=== PATIENT | female | born 1960 | race Hispanic/Latino ===

== ENCOUNTER 2019-04-13 19:15 | Emergency (ER) | payer BC, OTHER ==
[~2019-04-13] VITALS: Ht 149.9 cm; Wt 54.4 kg
--- OUTSIDE RECORDS SUMMARY | 2019-04-13 19:20 | XMS REPORT ---
Author Author [facility] Address Unknown Phone Unavailable Care Team Providers Care Wellness Program Manager Name Role Phone Unavailable Unavailable Problems This patient has no known problems. Allergies, Adverse Reactions, Alerts This patient has no known allergies or adverse reactions. Medications This patient has no known medications. Encounters Start Date/Time End Date/Time Encounter Type Admission Type Attending [facility] Facility Care Department Encounter ID 2019-04-07 09:34:06 2019-04-07 09:34:06 Outpatient [facility] [id number] 2019-04-07 09:30:53 2019-04-07 09:30:53 Outpatient [facility] [id number] 2019-04-07 08:58:02 2019-04-07 08:58:02 Outpatient [facility] [id number] 2019-04-07 00:00:00 2019-04-07 00:00:00 Outpatient [facility] [id number] 2019-02-14 00:00:00 2019-02-14 00:00:00 Outpatient [facility] [id number] 2019-02-13 00:00:00 2019-02-13 00:00:00 Outpatient [facility] [id number] 2019-01-25 00:00:00 2019-01-25 00:00:00 Outpatient [facility] [id number] 2019-01-09 00:00:00 2019-01-09 00:00:00 Outpatient [facility] [id number] 2019-01-02 12:09:20 2019-01-02 12:09:20 Outpatient [facility] [id number] 2018-11-14 00:00:00 2018-11-14 00:00:00 Outpatient [facility] [id number] 2018-11-08 08:25:50 2018-11-08 08:25:50 Outpatient [facility] [id number] 2018-11-01 10:57:25 2018-11-01 10:57:25 Outpatient [facility] [id number] 2018-10-27 10:09:42 2018-10-27 10:09:42 Outpatient [facility] [id number] 2018-10-27 09:59:50 2018-10-27 09:59:50 Outpatient [facility] [id number] 2018-10-27 08:05:10 2018-10-27 08:05:10 Outpatient [facility] [id number] 2018-10-26 14:28:58 2018-10-26 14:28:58 Outpatient [facility] [id number] 2018-10-25 00:00:00 2018-10-25 00:00:00 Outpatient [facility] [id number] 2018-09-20 00:00:00 2018-09-20 00:00:00 Outpatient [facility] [id number] 2018-09-19 08:07:27 2018-09-19 08:07:27 Outpatient [facility] [id number] 2018-09-19 07:17:04 2018-09-19 07:17:04 Outpatient [facility] [id number] 2018-09-17 23:00:35 2018-09-17 23:00:35 Emergency [facility] [id number] 2018-09-17 17:56:00 2018-09-17 17:56:00 Emergency [facility] [id number] 2018-09-17 13:56:26 2018-09-17 13:56:26 Outpatient [facility] [id number] 2018-09-17 00:00:00 2018-09-17 00:00:00 Outpatient [facility] [id number] 2018-08-31 08:12:34 2018-08-31 08:12:34 Outpatient [facility] [id number] 2018-08-02 10:51:37 2018-08-02 10:51:37 Outpatient [facility] [id number] 2018-07-21 10:54:44 2018-07-21 10:54:44 Outpatient [facility] [id number] 2018-07-21 10:16:42 2018-07-21 10:16:42 Outpatient [facility] [id number] 2018-07-08 07:51:59 2018-07-08 07:51:59 Outpatient [facility] [id number] 2018-07-08 07:04:25 2018-07-08 07:04:25 Outpatient [facility] [id number] 2018-06-21 08:18:20 2018-06-21 08:18:20 Outpatient [facility] [id number] 2018-06-13 13:13:24 2018-06-13 13:13:24 Outpatient [facility] [id number] 2018-06-02 10:36:58 2018-06-02 10:36:58 Outpatient [facility] [id number] 2018-06-02 00:00:00 2018-06-02 00:00:00 Outpatient [facility] [id number] 2018-05-31 00:00:00 2018-05-31 00:00:00 Outpatient [facility] [id number] 2018-05-24 00:00:00 2018-05-24 00:00:00 Outpatient [facility] [id number] 2018-05-17 12:58:36 2018-05-17 12:58:36 Outpatient [facility] [id number] 2018-05-05 10:08:55 2018-05-05 10:08:55 Outpatient [facility] [id number] 2018-05-05 00:00:00 2018-05-05 00:00:00 Outpatient [facility] [id number] 2018-04-28 00:00:00 2018-04-28 00:00:00 Outpatient [facility] [id number] 2018-04-22 07:34:59 2018-04-22 07:34:59 Outpatient [facility] [id number] 2018-04-22 00:00:00 2018-04-22 00:00:00 Outpatient [facility] [id number] 2018-04-15 13:37:18 2018-04-15 13:37:18 Outpatient [facility] [id number] 2018-04-15 08:04:15 2018-04-15 08:04:15 Outpatient [facility] [id number] 2018-04-13 16:17:43 2018-04-13 16:17:43 Outpatient [facility] [id number] 2018-04-06 14:05:41 2018-04-06 14:05:41 Outpatient [facility] [id number] 2018-04-06 12:36:46 2018-04-06 12:36:46 Outpatient [facility] [id number] 2018-04-05 12:34:55 2018-04-05 12:34:55 Outpatient [facility] [id number] 2018-03-31 15:06:09 2018-03-31 15:06:09 Outpatient [facility] [id number] 2018 11:17:29 2018 11:17:29 Outpatient [facility] [id number] 2018-03-17 00:00:00 2018-03-17 00:00:00 Outpatient [facility] [id number] 2018-03-16 07:39:04 2018-03-16 07:39:04 Outpatient [facility] [id number] 2018-03-15 00:00:00 2018-03-15 00:00:00 Outpatient [facility] [id number] 2018-03-10 07:34:38 2018-03-10 07:34:38 Outpatient [facility] [id number] 2018-03-08 00:00:00 2018-03-08 00:00:00 Outpatient [facility] [id number] 2018-03-03 00:00:00 2018-03-03 00:00:00 Outpatient [facility] [id number] 2018-03-01 12:46:57 2018-03-01 12:46:57 Outpatient [facility] [id number] 2018-03-01 08:44:36 2018-03-01 08:44:36 Outpatient [facility] [id number] 2018-02-28 10:04:57 2018-02-28 10:04:57 Outpatient [facility] [id number] 2018-02-23 14:00:14 2018-02-23 14:00:14 Outpatient [facility] [id number] 2018-02-21 07:03:53 2018-02-21 07:03:53 Outpatient [facility] [id number] 2018-02-16 09:20:09 2018-02-16 09:20:09 Outpatient [facility] [id number] 2018-02-16 07:53:10 2018-02-16 07:53:10 Outpatient [facility] [id number] 2018-02-15 07:55:43 2018-02-15 07:55:43 Outpatient [facility] [id number] 2018-02-11 00:00:00 2018-02-11 00:00:00 Outpatient [facility] [id number] 2018-02-09 07:04:46 2018-02-09 07:04:46 Outpatient [facility] [id number] 2018-02-02 08:23:26 2018-02-02 08:23:26 Outpatient [facility] [id number] 2018-01-26 06:57:42 2018-01-26 06:57:42 Outpatient [facility] [id number] 2018-01-24 13:18:39 2018-01-24 13:18:39 Outpatient [facility] [id number] 2018-01-21 12:51:26 2018-01-21 12:51:26 Outpatient [facility] [id number] 2018-01-19 08:11:17 2018-01-19 08:11:17 Outpatient [facility] [id number] 2018-01-19 00:00:00 2018-01-19 00:00:00 Outpatient [facility] [id number] 2018-01-18 00:00:00 2018-01-18 00:00:00 Outpatient [facility] [id number] 2018-01-14 07:25:56 2018-01-14 07:25:56 Outpatient [facility] [id number] 2018-01-07 07:46:10 2018-01-07 07:46:10 Outpatient [facility] [id number] 2018-01-04 08:54:04 2018-01-04 08:54:04 Outpatient [facility] [id number] 2018-01-04 07:54:27 2018-01-04 07:54:27 Outpatient [facility] [id number] 2017-12-31 07:49:41 2017-12-31 07:49:41 Outpatient [facility] [id number] 2017-12-28 00:00:00 2017-12-28 00:00:00 Outpatient [facility] [id number] 2017-12-21 07:51:13 2017-12-21 07:51:13 Outpatient [facility] [id number] 2017-12-20 00:00:00 2017-12-20 00:00:00 Outpatient [facility] [id number] 2017-12-17 00:00:00 2017-12-17 00:00:00 Outpatient [facility] [id number] 2017-12-15 15:21:20 2017-12-15 15:21:20 Outpatient [facility] [id number] 2017-12-15 08:25:19 2017-12-15 08:25:19 Outpatient [facility] [id number] 2017-12-10 06:52:56 2017-12-10 06:52:56 Outpatient [facility] [id number] 2017-12-07 14:49:16 2017-12-07 14:49:16 Outpatient [facility] [id number] 2017-12-07 12:55:10 2017-12-07 12:55:10 Outpatient [facility] [id number] 2017-12-01 07:46:35 2017-12-01 07:46:35 Outpatient [facility] [id number] 2017-11-24 15:19:34 2017-11-24 15:19:34 Outpatient [facility] [id number] 2017-11-22 08:51:35 2017-11-22 08:51:35 Outpatient [facility] [id number] 2017-11-22 07:53:02 2017-11-22 07:53:02 Outpatient [facility] [id number] 2017-11-17 07:14:00 2017-11-17 07:14:00 Outpatient [facility] [id number] 2017-11-16 00:00:00 2017-11-16 00:00:00 Outpatient [facility] [id number] 2017-11-15 08:52:25 2017-11-15 08:52:25 Outpatient [facility] [id number] 2017-11-15 08:41:18 2017-11-15 08:41:18 Outpatient [facility] [id number] 2017-11-12 08:00:02 2017-11-12 08:00:02 Outpatient [facility] [id number] 2017-11-09 07:32:28 2017-11-09 07:32:28 Outpatient [facility] [id number] 2017-11-09 06:43:13 2017-11-09 06:43:13 Outpatient [facility] [id number] 2017-11-04 10:59:17 2017-11-04 10:59:17 Outpatient [facility] [id number] 2017-11-03 14:15:57 2017-11-03 14:15:57 Outpatient [facility] [id number] 2017-11-01 10:52:19 2017-11-01 10:52:19 Outpatient [facility] [id number] 2017-10-29 09:57:55 2017-10-29 09:57:55 Outpatient [facility] [id number] 2017-10-27 15:07:31 2017-10-27 15:07:31 Outpatient [facility] [id number] 2017-10-27 14:39:44 2017-10-27 14:39:44 Outpatient [facility] [id number] 2017-10-27 13:26:45 2017-10-27 13:26:45 Outpatient [facility] [id number] 2017-10-26 10:20:48 2017-10-26 10:20:48 Outpatient [facility] [id number] 2017-10-25 15:13:46 2017-10-25 15:13:46 Outpatient [facility] [id number] 2017-10-25 13:35:37 2017-10-25 13:35:37 Outpatient [facility] [id number] 2017-07-22 07:49:21 2017-07-22 07:49:21 Emergency [facility] [id number]
--- NOTE | 2019-04-13 20:20 | Diagnostic Imaging Report ---
Radiographs of the right fifth digit - 3 views HISTORY: Pain COMPARISON: None available. FINDINGS: Bones: No acute displaced fracture. Palmar flexion of the distal right fifth phalanx with soft tissue swelling Joints: The joint spaces are well-maintained. Soft tissues: The soft tissues appear unremarkable. IMPRESSION: Palmar flexion of the distal right fifth phalanx with soft tissue swelling Signed by: Dr. Kvng Dee M.D. on 04/13/2019 8:16 PM
--- NOTE | 2019-04-13 20:36 | NUR ---
finger splint applied. tolerated well.
== END 2019-04-13 20:37 | disposition home or self-care (01) ==
LOC: ER 19:15
DX: S60.051A Contusion of right little finger without damage to nail, initial encounter (principal); W21.00XA Struck by hit or thrown ball, unspecified type, initial encounter; Y93.79 Activity, other specified sports and athletics; Y92.009 Unspecified place in unspecified non-institutional (private) residence as the place of occurrence of the external cause
CPT/HCPCS: 99283

== ENCOUNTER 2019-04-20 10:38 | Outpatient (RCR) | payer SELFPAY | END 2019-05-04 | LOC: OT 10:38 | PROVIDERS: ATTEND Plastic Surgery | DX: M20.011 Mallet finger of right finger(s) (principal); Y93.6A Activity, physical games generally associated with school recess, summer camp and children ==